=== PATIENT | male | born 1950 | race Caucasian/White ===

== ENCOUNTER 2017-06-27 13:00 | Emergency (ER) | payer OTHER ==
[2017-06-27 13:46] LABS: BASOPHILS 0.3 % (0-2); EOSINOPHILS 3.8 % (0-7); HEMATOCRIT 37.8 % (42.0-54.0); HEMOGLOBIN 12.4 g/dL (13.5-17.5); IMMATURE GRANULOCYTES 0.3 % (0-5); LYMPHOCYTES 28.8 % (15-50); MCH 32.5 pg (26.0-34.0); MCHC 32.8 g/dL (31.0-37.0); MEAN PLATELET VOLUME 11.5 fL (7.4-10.4); NEUTROPHILS 52.8 % (40-80); PLATELET COUNT 204 10x3/uL (130-400); RBC 3.82 10x6/uL (4.20-6.10); RDW 13.2 % (11.5-14.5); WBC 7.4 10x3/uL (4.8-10.8)
[2017-06-27 14:06] LABS: ALBUMIN 3.3 g/dL (3.4-5.0); ANION GAP 11.3 mmol/L (8-16); BILIRUBIN - TOTAL 0.46 mg/dL (0.2-1.3); CARBON DIOXIDE 26.8 mmol/L (21.0-32.0); CREATININE - SERUM 1.2 mg/dL (0.6-1.3); POTASSIUM - SERUM 4.1 mmol/L (3.5-5.1)
== END 2017-06-27 17:30 | disposition home or self-care (01) ==
LOC: D.ER 13:00
PROVIDERS: Family Medicine
DX: M79.662 Pain in left lower leg (principal); R60.0 Localized edema; F03.90 Unspecified dementia, unspecified severity, without behavioral disturbance, psychotic disturbance, mood disturbance, and anxiety; I10 Essential (primary) hypertension; G20 Parkinson's disease

== ENCOUNTER → 2017-10-14 10:47 | Outpatient (CLI) | payer OTHER | END | disposition home or self-care (01) | LOC: D.LABREF 10:47 | DX: M25.562 Pain in left knee (principal); Z11.8 Encounter for screening for other infectious and parasitic diseases ==

== ENCOUNTER 2017-11-17 10:00 | Inpatient (IN) | payer OTHER ==
[~2017-11-17] VITALS: Ht 180.3 cm; Wt 111.4 kg
--- NOTE | ~2017-11-17 | OP ---
PATIENT NAME: LIZZY CAST MEDICAL RECORD: [id number] :50 LOCATION:D.MS [id number] ADMISSION DATE:11/22/17 SURGEON: LIZZY OGEL MD DATE OF OPERATION: 11/22/2017 PREOPERATIVE DIAGNOSIS: Degenerative arthritis, left knee. POSTOPERATIVE DIAGNOSIS: Degenerative arthritis, left knee. PROCEDURE: Left total knee arthroplasty. SURGEON: Lizzy Goel MD ANESTHESIA: General. INTRAOPERATIVE COMPLICATIONS: None. SUMMARY OF PATHOLOGIC FINDINGS: Severe degenerative arthritis, severe varus malalignment, consistent with preoperative radiographs. IMPLANTS USED: smsPREP Triathlon total knee arthroplasty press-fit, size #5 distal femur, size #11 polyethylene insert, size #5 tibial baseplate, and a size #33 press-fit patellar component. OPERATIVE SUMMARY IN DETAIL: After obtaining the appropriate preoperative orthopaedic surgery consent as well as anesthetic consultation, evaluation, and clearance, the patient was brought to the operating room and placed on the operating table in the supine position. After adequate general laryngeal mask airway was administered, tourniquet was placed about the proximal aspect of left lower extremity. Left lower extremity was then prepped and draped in routine sterile fashion. Leg was elevated, exsanguinated, and tourniquet was inflated to 350 mmHg. Routine midline incision was taken down for paramedian arthrotomy. Patella was everted. Distal femur was exposed. Soft tissue excision was done in usual fashion. Intramedullary guidance was utilized for distal cut. Having completed the distal cut, proximal tibia was exposed. Residual soft tissue was removed and intramedullary guidance was used for proximal tibial cut. Measurements were taken. Chamfer cuts were made on the distal femur. Trials corresponding to the above implants were put into place, taken through range of motion, found to be stable in all planes. Final distal femoral and proximal tibial preparations were followed by excision of the arthritic articular aspect of the patella. Measurements were taken and the patella was prepared for size #33 press-fit component. The knee cavity was copiously irrigated in pulsatile lavage fashion. Knee was flexed. Bone ends were dried. Tibial component was put in followed by polyethylene. This was followed by the femoral insertion and then the patellar component was press-fitted using the press-fit patella clamping device. Having completed this, wound was copiously irrigated again and filled with Vitagel from smsPREP. Paramedian arthrotomy was closed with a #2 Ethibond. This was followed by #1 Vicryl, 2-0 Vicryl, and skin lobo. Sterile dressings were applied. Tourniquet was deflated. The patient was awakened and taken to the recovery room in stable condition. All final needle and sponge counts were correct. TRANSINT:[id number] Voice Confirmation ID: [id number] DOCUMENT ID: [id number] OPERATIVE REPORT [id number] LIZZY CAST MD, LIZZY VILLAGOMEZ at 1035 CC: [id number] DICTATION DATE: 11/22/17 0858 MENTAL HEALTH SPECIALIST: 11/22/17 1252 ADM IN [facility] [address] [place] [address]
--- NOTE | ~2017-11-17 | EC ---
PATIENT:LIZZY CAST DATE OF SERVICE: 11/22/17 SEX: M MEDICAL RECORD: [id number] DATE OF : 50 LOCATION:Lexi.MS [facility] AGE OF PATIENT: 67 ADMISSION DATE: 11/22/17 REFERRING PHYSICIAN: INTERPRETING PHYSICIAN: STEVE GOODWIN MD ECHOCARDIOGRAM REPORT ECHO CHARGES 4 ECHO COMPLETE Date: 11/26 CLINICAL DIAGNOSIS: AFIB ECHOCARDIOGRAPHIC MEASUREMENTS (adult normal given) AC root (d.<3.7cm) 2.6 cm LV Septum d (<1.2 cm> 1.4 cm Valve Excursion 1.2 cm LV Septum (systole) 1.5 cm Left Atria (s.<4.0cm> 4.1 cm LVPW d(<1.2cm) 1.2 cm RV (d.<2.3cm) 4.1 cm LVPW (sytole) 1.6 cm LV diastole(<5.6CM) 4.0 cm MV E-F(>70mm/sec) cm LV systole 2.8 cm LVOT Diameter 2.1 cm MV exc.(>10mm) 1.9 cm Est.ejection fraction (50-75%) % DOPPLER: LVIT cm/sec A 52.0 cm/sec E 87.0 cm/sec LA cm/sec RVSP 22 mmHg LVOT 129 cm/sec AOP1/2T m/s Asc. Ao 231 cm/sec RVOT 95 cm/sec RA cm/sec PA 151 cm/sec AV Gradient Peak 21.36mmHg AV Mean 12.67mmHg AV Area 2.1 cm MV Gradient Peak mmHg MV Mean mmHg MV Area cm COMMENTS: Fruit Picker: 2 MUNIR GTZ Yarn Texturing Machine Operator: 4 Dr. Goodwin TAPE# PACS Pericardial Effusion N DATE OF SERVICE: TRANSTHORACIC ECHOCARDIOGRAM FINDINGS: 1. The patient has got moderate concentric left ventricular hypertrophy. Ejection fraction is hyperdynamic at 75%. There is no obvious regional wall motion abnormalities. The patient is in atrial fibrillation and we were unable to get diastolic flow characteristics. 2. The left atrium is grossly normal, not well visualized. ECHOCARDIOGRAM REPORT [id number] LIZZY CAST 3. The aortic valve is grossly normal, not well visualized. Hint of aortic sclerosis. 4. The mitral valve is again overall normal, although not well visualized. 5. The tricuspid valve is normal. 6. The right ventricle is mildly dilated. 7. The right atrium is mildly dilated. CONCLUSIONS: The patient has atrial fibrillation, evidence of hypertensive heart disease. No significant valvular abnormalities and there is no systolic abnormalities per this evaluation. TRANSINT:[id number] Voice Confirmation ID: [id number] DOCUMENT ID: [id number] STEVE GOODWIN MD at 0927 CC: [id number] DICTATION DATE: 11/28/17 1032 ORE DRYER: 11/28/17 1055 DIS IN 11/30/17 [facility] [address] [place] [address]
[~2017-11-17 10:00] MED LIST: ARICEPT5 MG PO; ASPIRIN EC81 M1 PO; FLOMAX0.4 MG PO; FUROSEMIDE20 MG PO; LIPITOR20 MG PO; METOPROLOL TART50 MG PO; MOBIC7.5 MG PO; NEURONTIN 300300 MG PO; STALEVO 200 TAB1 TAB PO; ZESTRIL40 MG PO
[2017-11-17 11:18] LABS: APPEARANCE CLEAR (CLEAR); BILIRUBIN NEGATIVE (NEGATIVE); COLOR YELLOW (YELLOW); GLUCOSE NEGATIVE (NEGATIVE); KETONE NEGATIVE (NEGATIVE); NITRITE NEGATIVE (NEGATIVE); PROTEIN NEGATIVE (NEGATIVE); SPECIFIC GRAVITY 1.015 (1.005-1.020); UROBILINOGEN NORMAL (NORMAL)
[2017-11-17 11:33] LABS: BASOPHILS 0.4 % (0-2); HEMATOCRIT 40.9 % (42.0-54.0); HEMOGLOBIN 13.8 g/dL (13.5-17.5); IMMATURE GRANULOCYTES 0.1 % (0-5); LYMPHOCYTES 30.2 % (15-50); MCH 33.2 pg (26.0-34.0); MCHC 33.7 g/dL (31.0-37.0); MCV 98.3 fL (80.0-100.0); MEAN PLATELET VOLUME 11.2 fL (7.4-10.4); MONOCYTES 12.6 % (2-11); NEUTROPHILS 53.7 % (40-80); PLATELET COUNT 168 10x3/uL (130-400); RBC 4.16 10x6/uL (4.20-6.10); RDW 13.2 % (11.5-14.5)
[2017-11-17 11:42] LABS: APTT 26.7 SECONDS (22.8-39.4); INR 0.99 (0.85-1.17); PROTIME 12.7 SECONDS (11.6-15.0)
[2017-11-17 12:02] LABS: ANION GAP 11.1 mmol/L (8-16); CALCIUM 8.9 mg/dL (8.5-10.1); CARBON DIOXIDE 29.4 mmol/L (21.0-32.0); CREATININE - SERUM 1.4 mg/dL (0.6-1.3); POTASSIUM - SERUM 4.5 mmol/L (3.5-5.1)
[2017-11-22] VITALS (14 sets, daily range): BP systolic 110–146; BP diastolic 47–78; Ht 180.3 cm; Wt 111.4 kg
[2017-11-23 04:22] VITALS: BP 146/52
[2017-11-23 06:48] LABS: HEMATOCRIT 35.4 % (42.0-54.0); HEMOGLOBIN 11.7 g/dL (13.5-17.5); MCH 32.3 pg (26.0-34.0); MCHC 33.1 g/dL (31.0-37.0); MCV 97.8 fL (80.0-100.0); RBC 3.62 10x6/uL (4.20-6.10); RDW 13.1 % (11.5-14.5); WBC 16.3 10x3/uL (4.8-10.8)
[2017-11-23 08:30] VITALS: BP 126/54
[2017-11-23 12:44] VITALS: BP 135/57
[2017-11-23 15:49] VITALS: BP 179/69
[2017-11-23 20:00] VITALS: BP 167/57
[2017-11-24 00:41] VITALS: BP 168/74
[2017-11-24 04:00] VITALS: BP 136/68
[2017-11-24 04:59] LABS: HEMOGLOBIN 11.3 g/dL (13.5-17.5); MCH 32.8 pg (26.0-34.0); MCHC 34.2 g/dL (31.0-37.0); MCV 95.9 fL (80.0-100.0); MEAN PLATELET VOLUME 11.6 fL (7.4-10.4); RBC 3.44 10x6/uL (4.20-6.10); RDW 12.8 % (11.5-14.5); WBC 12.6 10x3/uL (4.8-10.8)
[2017-11-24 07:41] VITALS: BP 137/89
[2017-11-24 12:30] VITALS: BP 167/87
[2017-11-24 15:45] VITALS: BP 165/89
[2017-11-24 20:01] VITALS: BP 173/92
[2017-11-25 04:35] VITALS: BP 127/62
[2017-11-25 08:14] VITALS: BP 162/87
[2017-11-25 08:46] LABS: HEMATOCRIT 37.6 % (42.0-54.0); HEMOGLOBIN 12.7 g/dL (13.5-17.5); MCH 32.6 pg (26.0-34.0); MCHC 33.8 g/dL (31.0-37.0); MCV 96.4 fL (80.0-100.0); MEAN PLATELET VOLUME 11.1 fL (7.4-10.4); RBC 3.9 10x6/uL (4.20-6.10); RDW 13.2 % (11.5-14.5)
[2017-11-25 13:15] VITALS: BP 127/61
[2017-11-25 16:16] VITALS: BP 120/64
[2017-11-25 20:32] VITALS: BP 102/51
[2017-11-26 04:16] VITALS: BP 119/53
[2017-11-26] MEDS ORDERED: PERCOCET 10/3251 TA1 PO (08:04)
[2017-11-26] MEDS ORDERED: ELIQUIS2.5 MG PO (08:04)
[2017-11-26 08:07] VITALS: BP 116/60
[2017-11-26 11:26] VITALS: BP 79/42
[2017-11-26 15:30] VITALS: BP 114/68
[2017-11-26 17:30] LABS: ALBUMIN 2.5 g/dL (3.4-5.0); ALKALINE PHOSPHATASE 57 U/L (46-116); ALT (SGPT) 8 U/L (10-68); BILIRUBIN - TOTAL 0.51 mg/dL (0.2-1.3); CALC OSMOLALITY 284 mosm/kg (275-300); CALCIUM 8.4 mg/dL (8.5-10.1); CARBON DIOXIDE 29.7 mmol/L (21.0-32.0); CHLORIDE - SERUM 101 mmol/L (98-107); CREATININE - SERUM 2.1 mg/dL (0.6-1.3); GLUCOSE 121 mg/dL (74-106); MAGNESIUM - SERUM 2.4 mg/dL (1.8-2.4); POTASSIUM - SERUM 4.2 mmol/L (3.5-5.1); PRO BNP 2702 pg/mL (0-125); PROTEIN - SERUM 6.2 g/dL (6.4-8.2); SODIUM 137 mmol/L (136-145); UREA NITROGEN 40 mg/dL (7-18); eGFR NON AFRICAN AMERICAN 34 mL/min (90-120)
[2017-11-26 17:31] LABS: TROPONIN-I < 0.017 ng/mL (0.000-0.060)
[2017-11-26 23:16] VITALS: BP 100/46
[2017-11-27 04:11] VITALS: BP 114/50
[2017-11-27 07:53] VITALS: BP 138/70
[2017-11-27 09:37] LABS: ALBUMIN 2.5 g/dL (3.4-5.0); BILIRUBIN - TOTAL 0.69 mg/dL (0.2-1.3); CALCIUM 8.6 mg/dL (8.5-10.1)
[2017-11-27 09:40] LABS: CREATININE - SERUM 1.2 mg/dL (0.6-1.3)
[2017-11-27 12:28] VITALS: BP 95/47
[2017-11-27 16:00] VITALS: BP 91/43
[2017-11-27 20:55] VITALS: BP 133/58
[2017-11-28 00:47] VITALS: BP 103/51
[2017-11-28 05:04] VITALS: BP 114/54
[2017-11-29 12:00] VITALS: BP 118/67
[2017-11-29 15:33] VITALS: BP 104/43
[2017-11-29 20:11] VITALS: BP 113/49
[2017-11-29 23:58] VITALS: BP 124/48
[2017-11-30 04:48] VITALS: BP 134/54
[2017-11-30 08:09] VITALS: BP 130/64
[2017-11-30 12:25] VITALS: BP 102/50
[2017-11-30] MEDS ORDERED: METOPROLOL TART50 MG PO (12:35)
== END 2017-11-30 17:41 | DRG 470 ==
LOC: D.SDCHOLD 10:00 → D.MS 11-22 05:00 → D.SDCHOLD 11-22 05:00 → D.MS 11-22 09:28 → D.SDCHOLD 11-22 10:00 → D.MS 11-30 17:41
PROVIDERS: Internal Medicine Cardiovascular Disease; Orthopaedic Surgery
PROC: 0SRD0JA Replacement of Left Knee Joint with Synthetic Substitute, Uncemented, Open Approach (ICD-10-PCS; principal; 2017-11-22 07:30)
DX: M17.12 Unilateral primary osteoarthritis, left knee (principal); F05 Delirium due to known physiological condition; G20 Parkinson's disease; F02.80 Dementia in other diseases classified elsewhere, unspecified severity, without behavioral disturbance, psychotic disturbance, mood disturbance, and anxiety; I10 Essential (primary) hypertension; I48.2 Chronic atrial fibrillation

== ENCOUNTER 2018-02-13 14:17 | Emergency (ER) | payer OTHER, MEDICAID ==
[~2018-02-13] VITALS: Ht 180.3 cm; Wt 109.1 kg
[~2018-02-13 14:17] MED LIST changes: +ELIQUIS2.5 MG PO; +PERCOCET 10/3251 TA1 PO
[2018-02-13 14:19] VITALS: Ht 180.3 cm; Wt 109.1 kg
[2018-02-13] MEDS ORDERED: HYDROCODONE-APA1 TAB PO (14:23)
[2018-02-13] MEDS ORDERED: MOBIC7.5 MG PO (14:24)
[2018-02-13 15:13] LABS: BASOPHILS 0.3 % (0-2); EOSINOPHILS 3.3 % (0-7); HEMATOCRIT 37.6 % (42.0-54.0); HEMOGLOBIN 12.6 g/dL (13.5-17.5); IMMATURE GRANULOCYTES 0.2 % (0-5); LYMPHOCYTES 32.7 % (15-50); MCH 32.9 pg (26.0-34.0); MCHC 33.5 g/dL (31.0-37.0); MCV 98.2 fL (80.0-100.0); NEUTROPHILS 48.5 % (40-80); PLATELET COUNT 185 10x3/uL (130-400); RBC 3.83 10x6/uL (4.20-6.10); RDW 13.9 % (11.5-14.5)
[2018-02-13 15:18] LABS: ALBUMIN 3.5 g/dL (3.4-5.0); ALKALINE PHOSPHATASE 88 U/L (46-116); ALT (SGPT) 14 U/L (10-68); CALC OSMOLALITY 290 mosm/kg (275-300); CALCIUM 8.7 mg/dL (8.5-10.1); CARBON DIOXIDE 29.3 mmol/L (21.0-32.0); CHLORIDE - SERUM 104 mmol/L (98-107); CREATININE - SERUM 1.5 mg/dL (0.6-1.3); GLUCOSE 113 mg/dL (74-106); POTASSIUM - SERUM 3.7 mmol/L (3.5-5.1); PROTEIN - SERUM 7.7 g/dL (6.4-8.2); SODIUM 143 mmol/L (136-145); UREA NITROGEN 26 mg/dL (7-18); eGFR NON AFRICAN AMERICAN 49 mL/min (90-120)
[2018-02-13 15:27] LABS: C-REACTIVE PROTEIN < 0.2 mg/dL (0.0-0.9); CREATINE KINASE 192 UL (21-232); LIPASE 176 U/L (73-393); PRO BNP 1183 pg/mL (0-125); TROPONIN-I < 0.017 ng/mL (0.000-0.060)
[2018-02-13 16:02] LABS: APPEARANCE CLEAR (CLEAR); BILIRUBIN NEGATIVE (NEGATIVE); COLOR YELLOW (YELLOW); GLUCOSE NEGATIVE (NEGATIVE); KETONE NEGATIVE (NEGATIVE); NITRITE NEGATIVE (NEGATIVE); PROTEIN NEGATIVE (NEGATIVE); SPECIFIC GRAVITY 1.015 (1.005-1.020); UROBILINOGEN NORMAL (NORMAL)
[2018-02-13 17:02] VITALS: BP 118/55
== END 2018-02-13 17:03 | disposition home or self-care (01) ==
LOC: D.ER 14:17
PROVIDERS: Family Medicine
DX: G89.29 Other chronic pain (principal); M79.1 Myalgia; G20 Parkinson's disease; F02.80 Dementia in other diseases classified elsewhere, unspecified severity, without behavioral disturbance, psychotic disturbance, mood disturbance, and anxiety; I10 Essential (primary) hypertension; N42.9 Disorder of prostate, unspecified

== ENCOUNTER → 2018-06-10 08:35 | Outpatient (CLI) | payer MEDICARE ==
[2018-02-13 14:19] VITALS: BMI 33.5
[~2018-06-10 08:35] MED LIST changes: +HYDROCODONE-APA1 TAB PO
[2018-06-13 08:09] LABS: HCVGENO - HEP C QUANT HCV Not Detected IU/mL (())
== END | disposition home or self-care (01) ==
LOC: D.LAB 08:35
PROVIDERS: Family Medicine
DX: Z86.19 Personal history of other infectious and parasitic diseases (principal)

== ENCOUNTER 2018-07-27 14:42 | Emergency (ER) | payer MEDICARE ==
[~2018-07-27] VITALS: Ht 180.3 cm; Wt 111.4 kg
[2018-07-27 14:52] VITALS: BP 103/49; Ht 180.3 cm; Wt 111.4 kg
== END 2018-07-27 16:21 | disposition home or self-care (01) ==
LOC: D.ER 14:42
DX: T16.1XXA Foreign body in right ear, initial encounter (principal); X58.XXXA Exposure to other specified factors, initial encounter; Y93.89 Activity, other specified; Y92.019 Unspecified place in single-family (private) house as the place of occurrence of the external cause; G20 Parkinson's disease; G30.9 Alzheimer's disease, unspecified; F02.80 Dementia in other diseases classified elsewhere, unspecified severity, without behavioral disturbance, psychotic disturbance, mood disturbance, and anxiety; I10 Essential (primary) hypertension

== ENCOUNTER 2018-09-25 14:23 | Emergency (ER) | payer MEDICARE ==
[~2018-09-25] VITALS: Ht 180.3 cm; Wt 111.4 kg
[2018-09-25 14:25] VITALS: Ht 180.3 cm; Wt 111.4 kg
[2018-09-25 16:17] VITALS: BP 132/78
== END 2018-09-25 16:19 | disposition home or self-care (01) ==
LOC: D.ER 14:23
DX: T16.1XXA Foreign body in right ear, initial encounter (principal); X58.XXXA Exposure to other specified factors, initial encounter

== ENCOUNTER 2019-08-22 10:29 | Inpatient (IN) | payer MEDICARE, MEDICAID ==
[~2019-08-22] VITALS: Ht 180.3 cm; Wt 94.7 kg
[2019-08-22 10:55] VITALS: BP 124/58
[2019-08-22 11:05] VITALS: BP 124/58; BMI 30.5
[2019-08-22] MEDS ORDERED: BAYER CHEWABLE81 MG PO (13:43)
[2019-08-22] MEDS ORDERED: COLACE100 MG PO (13:43)
[2019-08-22] MEDS ORDERED: DURAGESIC1 PATCH .7 TRANSDERM (13:48)
[2019-08-22] MEDS ORDERED: REMERON15 MG PO (13:49)
[2019-08-22] MEDS ORDERED: HYDROCORTISONE30 G9 TOPICAL (13:49)
[2019-08-22] MEDS ORDERED: TEMAZEPAM30 MG PO (13:50)
[2019-08-22] MEDS ORDERED: ACETAMINOPHEN500 M1 PO (13:50)
[2019-08-22] MEDS ORDERED: MIRALAX17 GM PO (13:51)
[2019-08-22] MEDS ORDERED: METOPROLOL TART50 MG PO (13:57)
[2019-08-22] MEDS ORDERED: HYDROCODON-ACE1 EA10 PO (13:58)
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
[2019-08-22 14:53] LABS: BASOPHILS 0.4 % (0-2); EOSINOPHILS 7.4 % (0-7); HEMATOCRIT 38.6 % (42.0-54.0); HEMOGLOBIN 12.3 g/dL (13.5-17.5); IMMATURE GRANULOCYTES 0.2 % (0-5); LYMPHOCYTES 23.9 % (15-50); MCH 32.9 pg (26.0-34.0); MCHC 31.9 g/dL (31.0-37.0); MCV 103.2 fL (80.0-100.0); MEAN PLATELET VOLUME 11.7 fL (7.4-10.4); MONOCYTES 11.5 % (2-11); NEUTROPHILS 56.6 % (40-80); PLATELET COUNT 191 10x3/uL (130-400); RBC 3.74 10x6/uL (4.20-6.10); RDW 13.3 % (11.5-14.5); WBC 10.5 10x3/uL (4.8-10.8)
[2019-08-22 15:15] LABS: ALBUMIN 3.3 g/dL (3.4-5.0); BILIRUBIN - TOTAL 0.35 mg/dL (0.2-1.3); CALCIUM 8.6 mg/dL (8.5-10.1); CARBON DIOXIDE 27.4 mmol/L (21.0-32.0); CHOL - HDL RATIO 4.9 ratio (2.3-4.9); CREATININE - SERUM 1.5 mg/dL (0.6-1.3); LDL-HDL RATIO 2.8 ratio (1.5-3.5); POTASSIUM - SERUM 4.4 mmol/L (3.5-5.1); THYROID STIMULATING HORMONE 1.62 uIU/mL (0.36-3.74)
--- NOTE | 2019-08-22 19:54 | NUR ---
RECEIVED IN DAYROOM. SITTING IN A WHEELCHAIR WITH PEERS AT HIS SIDE. CALM AND COOPERATIVE WITH CARE AND ASSESSMENT. NO SIGNS OF AGGRESSION. REDIRECT AND REORIENT NEEDED. CONTINUES TO SIT QUIETLY. CONTINUE PLAN OF CARE
[2019-08-22 20:32] VITALS: BP 115/49
[2019-08-23 07:12] LABS: RAPID PLASMA REAGIN Non Reactive (Non Reactive)
--- NOTE | 2019-08-23 08:30 | NUR ---
RECEIVED IN HALLWAY OUTSIDE OF NURSES STATION. CALM AND COOPERATIVE WITH CARE AND ASSESSMENT. PLEASANT. NO AGGRESSIVE BEHAVIORS. REDIRECT AND REORIENT NEEDED. WAITING FOR BREAKFAST AT THIS TIME. CONTINUE PLAN OF CARE.
[2019-08-23 09:13] LABS: BILIRUBIN NEGATIVE (NEGATIVE); GLUCOSE NEGATIVE (NEGATIVE); KETONE NEGATIVE (NEGATIVE); NITRITE NEGATIVE (NEGATIVE); SPECIFIC GRAVITY 1.015 (1.005-1.020); UROBILINOGEN NORMAL (NORMAL)
[2019-08-23 09:43] VITALS: Ht 180.3 cm; Wt 94.7 kg
[2019-08-23 10:21] VITALS: BP 123/57
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
--- NOTE | 2019-08-23 20:55 | NUR ---
RECEIVED IN HALLWAY OUTSIDE OF NURSES STATION. CALM AND COOPERATIVE WITH CARE AND ASSESSMENT. NO AGGRESSION. REDIRECT AND REORIENT NEEDED. RESTING IN BED WITH EYES OPEN AT THIS TIME. CONTINUE PLAN OF CARE.
[2019-08-23 21:59] VITALS: BP 144/70
--- NOTE | 2019-08-24 09:01 | PN ---
PATIENT:LIZZY CAST MEDICAL RECORD: [id number] LOCATION:OMI [facility] ADMISSION DATE: 08/22/19 PROGRESS NOTE DATE OF SERVICE: 08/23/2019 SUBJECTIVE: The patient's case was discussed with staff. He has no new complaint. OBJECTIVE: The patient has not been aggressive. He has pretty limited insight about his situation. He has not complained of pain or discomfort. ASSESSMENT: No change in diagnoses. PLAN: Supportive and educational interventions were made. Long-term prognosis is guarded. TRANSINT:[id number] Voice Confirmation ID: [id number] DOCUMENT ID: [id number] STEVEN ANTONIO MD at 0901 CC: [id number] DICTATION DATE: 08/23/19 1506 CLIENT SERVICES MANAGER: 08/23/19 2330 ADM IN [place] [address] [place] [address]
--- NOTE | 2019-08-24 11:24 | NUR ---
Nutrition Follow-up: Chart reviewed, noted edema (+1) per MD notes. Diet: Regular (SHELLFISH ALLERGY) PO intake: ~83% average x last 6 meals Last BM: 08/23/19. WT: 218.8# (08/22/19) Meds noted: miralax, colace, lasix. Labs reviewed. Recommend continue current diet. RD following.
[2019-08-24 11:40] VITALS: BP 112/45
--- NOTE | 2019-08-24 12:55 | NUR ---
ALERT AND CALM, COOPERATIVE, AND CONFUSED. NO AGGRESSION NOTED. MEDS ADMIN PER ORDERS WITH COMPLETE MED COMPLIANCE NOTED. COOPERATIVE WITH POC, CONT POC DIRECTED.
[2019-08-24 20:44] VITALS: BP 116/46
--- NOTE | 2019-08-24 22:04 | NUR ---
B.)PT IS ALERT AND ORIENTED TO SELF AND SITUATION AT TIMES. HE IS ABLE TO AMBULATE WITHOUT ASSIST. HE IS PLEASANT CALM AND COOPERATIVE WITH STAFF. HE IS RECEIVED IN THE DAYROOM SOCIALIZING WITH HIS PEERS. HE IS ABLE TO MAKE HIS NEEDS KNOWN. I.) PROVIDED PM MEDICATIONS PRESCRIBED. REDIRECT NEEDED. R.) COMPLIANT WITH ALL MEDICATIONS. EASY TO REDIRECT. P.) WILL CONTINUE TO MONITOR.
[2019-08-25 10:29] VITALS: BP 115/57
--- NOTE | 2019-08-25 14:05 | NUR ---
ALERT, CALM, COOPERATIVE, NO AGGRESSION NOTED. MEDS ADMIN PER ORDERS WITH COMPLETE MED COMPLIANCE NOTED. CONT. POC DIRECTED. SHOWER GIVEN.
[2019-08-25 20:00] VITALS: BP 140/56
--- NOTE | 2019-08-26 00:21 | NUR ---
PATIENT IS PLEASANT, INTERACTS WELL WITH OTHER PATIENTS AND STAFF, COMPLIANT WITH MEDS, NO ADVERSER REACTION NOTED. CAN MAKE ALL NEEDS KNOWN.
--- NOTE | 2019-08-26 07:50 | NUR ---
The patient is oriented to self. He came out of his room and he said "Hey, is anyone home?" He said "Can someone get me out of this dress?" The patient is awake, but he has poor insight into his situation. Provide prescribed meds. Redirect as needed. The patient has not shown any aggression this am. Continue POC.
[2019-08-26 10:46] VITALS: BP 138/70
--- NOTE | 2019-08-26 12:57 | PN ---
PATIENT:LIZZY HUDSON MEDICAL RECORD: [id number] LOCATION:OMI Jimenez ADMISSION DATE: 08/22/19 PROGRESS NOTE DATE OF SERVICE: 08/25/2019 DATE OF SERVICE: 08/25/2019 SUBJECTIVE: The patient's case was discussed with staff. The patient does report that he is easily irritated and is irritated presently by another patient that is across the room. OBJECTIVE: The patient's general appearance is appropriate for environment. His orientation, he is alert to person, disoriented to time, place and situation. His speech is soft, low tone, low volume. His associations are loose. His eye contact is fair. His judgment and insight is impaired. Impulsivity is high. Thought and concentration, he is distracted. His mood is depressed, anxious, easily agitated. His affect is restricted. His anxiety is moderate. His memory is poor for both recent and remote events. He does not appear to be hallucinating either visual or auditory. ASSESSMENT: No change. PLAN: Will be to continue to strive to improve his mood and decrease his irritability, impulsivity and aggression. We will monitor his tolerance of medications. Plan to keep him safe and others safe. Dictated By: Chelsea Hduson APN I have interviewed/examined the above patient and agree with these documented findings. TRANSINT:[id number] Voice Confirmation ID: [id number] DOCUMENT ID: [id number] STEVEN ANTONIO MD at 1443 at 1257 CC: [id number] DICTATION DATE: 08/25/19 1301 BULLET LUBRICANT MIXER: 08/25/19 1428 ADM IN [facility] [address] [place] [address]
[2019-08-26 20:48] VITALS: BP 125/81
--- NOTE | 2019-08-26 20:56 | NUR ---
PATIENT SITTING CALMLY IN DAYROOM AT CHANGE OF SHIFT, NO AGGRESSION NOTED, COOPERATIVE, FOLLOWS UNIT RULES, COMPLIANT WITH MEDS, NO ADVERSE REACTION NOTED. WILL FOLLOW PC
--- NOTE | 2019-08-27 09:13 | NUR ---
RECEIVED IN HALLWAY OUTSIDE OF NURSES STATION. CALM AND COOPERATIVE WITH CARE AND ASSESSMENT. NO AGGRESSIVE BEHAVIORS. REDIRECT AND REORIENT NEEDED. EATING BREAKFAST AT THIS TIME. CONTINUE PLAN OF CARE.
[2019-08-27 10:30] VITALS: BP 137/61
[2019-08-27 20:00] VITALS: BP 140/54
--- NOTE | 2019-08-28 01:47 | NUR ---
B) patient is alert and oriented to person and being in a hospital, calm and cooperative, I) Administered scheduled medications as ordered, assisted with needs, R) Mediation compliant, no aggressive behaviors noted, P) Continue plan of care.
--- NOTE | 2019-08-28 09:00 | NUR ---
RECEIVED IN HALLWAY OUTSIDE OF NURSES STATION. CALM AND COOPERATIVE WITH CARE AND ASSESSMENT. NO BEHAVIORS. VERY PLEASANT. REDIRECT AND REORIENT NEEDED. EATING BREAKFAST AT THIS TIME. CONTINUE PLAN OF CARE.
[2019-08-28 09:13] VITALS: BP 114/60
--- NOTE | 2019-08-28 14:43 | PN ---
PATIENT:LIZZY HUDSON MEDICAL RECORD: [id number] LOCATION:OMI [facility] ADMISSION DATE: 08/22/19 PROGRESS NOTE DATE OF SERVICE: 08/25/2019 SUBJECTIVE: The patient's case was discussed with staff. The staff reports that his mood continues to be more stable. The patient does smile and is conversive. Does state that he is not feeling like he is sleeping very much. OBJECTIVE: The patient's general appearance is appropriate for his environment. His orientation is alert to person, disoriented to time, place, and situation. His speech is soft, low tone low volume. His associations are loose. His eye contact is good. His judgment and insight are impaired. Impulsivity is moderate. Thought and concentration is incoherent. His mood is depressed and anxious. His affect is restricted. His anxiety is mild. His memory is poor for both recent and remote events. He does not appear to be hallucinating either visual or auditory. ASSESSMENT: No change in previous progress note. PLAN: We will add buspirone to see if that will help with his anxiety and sleep. We will strive to improve his mood, decrease his irritability, impulsivity, and aggression. We will monitor his tolerance for medications. Continue to keep him safe and prepare him for discharge. Dictated By: Chelsea Hudson APN I have interviewed/examined the above patient and agree with these documented findings. TRANSINT:[id number] Voice Confirmation ID: [id number] DOCUMENT ID: [id number] STEVEN ANTONIO MD at 1443 CC: [id number] DICTATION DATE: 08/27/19 1443 PROGRAMMABLE LOGIC CONTROLLER ASSEMBLER: 08/27/198 ADM IN [facility] [address] [place] [id number]
--- NOTE | 2019-08-28 14:43 | PN ---
PATIENT:LIZZY HUDSON MEDICAL RECORD: [id number] LOCATION:OMI [facility] ADMISSION DATE: 08/22/19 PROGRESS NOTE DATE OF SERVICE: 08/26/2019 SUBJECTIVE: The patient's case was discussed with staff. The staff reports that he is more pleasant today. He did complain of some back pain. The patient denies feeling irritated today. He did state he did not sleep well, but feels that he is in a better mood. OBJECTIVE: The patient's general appearance is appropriate for environment. His orientation is alert to person, disoriented to time, place, and situation. His speech is soft, low tone, low volume. His associations are loose. His eye contact is good. His judgment and insight are impaired. His impulsivity is high. Thought and concentration is incoherent. His mood is depressed and anxious. His affect is restricted. His anxiety is mild. His memory is poor for both recent and remote events. He does not appear to be hallucinating either visual or auditory. ASSESSMENT: No change in previous progress note. PLAN: We will continue to strive to improve his mood and decrease his irritability, impulsivity, and aggression. We will monitor his tolerance for medications. Continue to keep him safe. Dictated By: Chelsea Hudson APN I have interviewed/examined the above patient and agree with these documented findings. TRANSINT:[id number] Voice Confirmation ID: [id number] DOCUMENT ID: [id number] 08/28/2019 Edited for correction of date of service per Chelsea Hudson APN, dmm. STEVEN ANTONIO MD at 1443 CC: [id number] DICTATION DATE: 08/26/19 1255 URBAN GARDENING SPECIALIST: 08/26/19 1647 ADM IN [facility] [address] [place] [address]
--- NOTE | 2019-08-28 14:43 | PN ---
PATIENT:LZIZY CAST MEDICAL RECORD: [id number] LOCATION:OMI Jimenez ADMISSION DATE: 08/22/19 PROGRESS NOTE DATE OF SERVICE: 08/24/2019 SUBJECTIVE: The patient's case was discussed with staff. He has no new complaint. OBJECTIVE: The patient is tolerating his medicines well. He has not been aggressive. He is sleeping well and eating reasonably well. ASSESSMENT: Dementia. PLAN: The patient will be maintained on current medications. I am going to start him on some Celexa for his mood lability. He will be monitored for clinical changes associated with its use. TRANSINT:[id number] Voice Confirmation ID: [id number] DOCUMENT ID: [id number] STEVEN ANTONIO MD at 1443 CC: [id number] DICTATION DATE: 08/24/19 1311 OIL SCOUT: 08/24/19 1401 ADM IN [place] [id number] [place] [id number]
--- NOTE | 2019-08-28 22:45 | NUR ---
B.) PT IS ALERT AND ORIENTED TO SELF, PLACE AND SITUATION. HE IS CALM AND COOPERATIVE WITH STAFF. HE IS PLEASANT AND RECEIVED IN THE DAYROOM SOCIALIZING WITH PEERS. I.) PROVIDED PM MEDICATIONS PRESCRIBED. REDIRECT NEEDED. R.) COMPLIANT WITH ALL MEDICATIONS. EASY TO REDIRECT. P.) WILL CONTINUE TO MONITOR.
[2019-08-29 06:43] VITALS: BP 121/50
[2019-08-29 10:10] VITALS: BP 127/50
--- NOTE | 2019-08-29 14:43 | PN ---
PATIENT:LIZZY CAST MEDICAL RECORD: [id number] LOCATION:OMI Jimenez ADMISSION DATE: 08/22/19 PROGRESS NOTE DATE OF SERVICE: 08/28/2019 SUBJECTIVE: The patient's case was discussed with staff. He has no new complaint. OBJECTIVE: The patient is in good behavioral control. He has not been aggressive. He has limited insight about his situation. ASSESSMENT: Dementia. PLAN: Current medicines have been reviewed and will be maintained. His long-term prognosis is guarded. TRANSINT:[id number] Voice Confirmation ID: [id number] DOCUMENT ID: [id number] STEVEN ANTONIO MD at 1443 CC: [id number] DICTATION DATE: 08/28/19 1635 WEDDING DECORATOR: 08/28/19 191 ADM IN [facility] [address] [place] [address]
[2019-08-29] MEDS ORDERED: DONEPEZIL HCL5 MG PO (15:09)
[2019-08-29] MEDS ORDERED: LISINOPRIL10 MG PO (15:09)
[2019-08-29] MEDS ORDERED: BUSPAR5 MG PO (15:10)
[2019-08-29] MEDS ORDERED: CELEXA20 MG PO (15:10)
[2019-08-29] MEDS ORDERED: NEURONTIN 400400 MG PO (15:10)
[2019-08-29] MEDS ORDERED: COLACE100 MG PO (15:11)
[2019-08-29 20:26] VITALS: BP 115/48
--- NOTE | 2019-08-29 22:29 | NUR ---
B.) PT IS ALERT AND ORIENTED TO SELF AND SITUATION. HE IS CALM COOPERATIVE AND PLEASANT WITH STAFF. HE IS RECEIVED IN THE DAYROOM SOCIALIZING WITH PEERS. HE IS ABLE TO AMBULATE WITHOUT ASSIST AND MAKE HIS NEEDS KNOWN. I.) PROVIDED PM MEDICATIONS PRESCRIBED. REDIRECT NEEDED. R.) COMPLIANT WITH ALL MEDICATIONS. EASY TO REDIRECT. P.) WILL CONTINUE TO MONITOR
[2019-08-30 09:51] VITALS: BP 111/50
--- NOTE | 2019-08-30 12:10 | NUR ---
PT SITTING AT EATING LUNCH AT THIS TIME. NO BEHAVIORS NOTED AT THIS TIME. PT IS ALERT TO SELF AND SITUATION. PT IS FRIENDLY WITH STAFF AND PEERS. COMPLIANT WITH MEDS, VITALS AND ASSESSMENTS. PT AMBULATES AND CAN MAKE NEEDS KNOWN. WILL CONT PLAN OF CARE.
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
--- NOTE | 2019-08-30 15:12 | NUR ---
PATIENT DISCHARGED TO [facility] TODAY. REPORT CALLED TO NINFA AT 1430. PT WAS IN A GOOD MOOD AND READY TO GO. PT STABLE AT TIME OF DISCHARGE. PT BELONGINGS SENT WITH PT. PT AMBUALTED TO FACILITY [facility]AN. PAPERWORK SENT WITH PATIENT TO THE [facility] AND FAXED TO [facility].
--- NOTE | 2019-08-31 16:18 | PN ---
PATIENT:LIZZY CAST MEDICAL RECORD: [id number] LOCATION:OMI Jimenez ADMISSION DATE: 08/22/19 PROGRESS NOTE DATE OF SERVICE: 08/30/2019 SUBJECTIVE: The patient's case was discussed with staff. He has no new complaint. GENERAL: The patient is alert and oriented to person and place and somewhat to time and situation. His mood is euthymic. His affect appropriate. He has not been aggressive. ASSESSMENT: Dementia. PLAN: The patient will be transitioned back to the [facility]. Long-term prognosis is guarded. Supportive and educational interventions were made. Followup will be with his primary care jail physician. TRANSINT:[id number] Voice Confirmation ID: [id number] DOCUMENT ID: [id number] STEVEN ANTONIO MD at 1618 CC: [id number] DICTATION DATE: 08/30/19 1436 SENIOR COMPENSATION ANALYST: 08/30/19 1630 DIS IN 08/30/19 [facility] [address] [place] [address]
== END 2019-08-30 14:30 | DRG 57 ==
LOC: D.PSYCH 10:29
PROVIDERS: ADMIT Psychiatry & Neurology Psychiatry; ATTEND Psychiatry & Neurology Psychiatry
DX: G20 Parkinson's disease (principal); F02.81 Dementia in other diseases classified elsewhere, unspecified severity, with behavioral disturbance; M17.12 Unilateral primary osteoarthritis, left knee; I10 Essential (primary) hypertension; I48.0 Paroxysmal atrial fibrillation; G89.4 Chronic pain syndrome; E78.2 Mixed hyperlipidemia; N40.0 Benign prostatic hyperplasia without lower urinary tract symptoms; K59.01 Slow transit constipation; H40.9 Unspecified glaucoma; M15.0 Primary generalized (osteo)arthritis; K21.9 Gastro-esophageal reflux disease without esophagitis; F41.8 Other specified anxiety disorders; R63.0 Anorexia; Z68.34 Body mass index [BMI] 34.0-34.9, adult; L30.9 Dermatitis, unspecified

== ENCOUNTER 2019-12-02 15:58 | Emergency (ER) | payer MEDICARE ==
[~2019-12-02] VITALS: Ht 180.3 cm; Wt 102.3 kg
[~2019-12-02 15:58] MED LIST changes: +ACETAMINOPHEN500 M1 PO; +BAYER CHEWABLE81 MG PO; +BUSPAR5 MG PO; +CELEXA20 MG PO; +COLACE100 MG PO; +DONEPEZIL HCL5 MG PO; +DURAGESIC1 PATCH .7 TRANSDERM; +HYDROCODON-ACE1 EA10 PO; +HYDROCORTISONE30 G9 TOPICAL; +LISINOPRIL10 MG PO; +MIRALAX17 GM PO; +NEURONTIN 400400 MG PO; +REMERON15 MG PO; +TEMAZEPAM30 MG PO
[2019-12-02 16:00] VITALS: Ht 180.3 cm; Wt 102.3 kg
[2019-12-02 19:18] VITALS: BP 128/79
== END 2019-12-02 19:20 ==
LOC: D.ER 15:58
DX: S00.83XA Contusion of other part of head, initial encounter (principal); X58.XXXA Exposure to other specified factors, initial encounter; F03.90 Unspecified dementia, unspecified severity, without behavioral disturbance, psychotic disturbance, mood disturbance, and anxiety; G20 Parkinson's disease; S80.01XA Contusion of right knee, initial encounter; I10 Essential (primary) hypertension; I48.91 Unspecified atrial fibrillation

== ENCOUNTER 2020-10-11 17:14 | Emergency (ER) | payer MEDICARE ==
[~2020-10-11] VITALS: Ht 180.3 cm; Wt 100.0 kg
[2020-10-11 17:19] VITALS: Ht 180.3 cm; Wt 100.0 kg
[2020-10-11 22:07] VITALS: BP 127/52
== END 2020-10-11 22:00 | disposition home or self-care (01) ==
LOC: D.ER 17:14
DX: S00.01XA Abrasion of scalp, initial encounter (principal); W06.XXXA Fall from bed, initial encounter; Y93.9 Activity, unspecified; Y92.9 Unspecified place or not applicable; N40.0 Benign prostatic hyperplasia without lower urinary tract symptoms; M54.2 Cervicalgia